=== PATIENT | male | born 1975 | race Caucasian/White ===

== ENCOUNTER 2023-05-19 15:39 | Outpatient (REF) | payer BC, SELFPAY ==
--- OUTSIDE RECORDS SUMMARY | 2023-05-19 15:44 | XMS_ITS | Continuity of Care Document ---
Author Name Unknown Organization [facility] Ambulatory Clinics Address [address] [place] [address] Encounter [facility] FIN NBR [id number] Date(s): 04/19/23 - 04/19/23 [facility] Ambulatory Clinics [address] [place], [place] [address] Encounter Diagnosis Maxillary sinusitis(Discharge Diagnosis) - 04/19/23 Discharge Disposition: Home or Self Care Attending Physician: Wilson WHEELER, Alma Rosa Allergies, Adverse Reactions, Alerts Substance Reaction Severity Status codeine Delusion Moderate Active Percocet Vomit Moderate Active Functional Status 04/19/23 Other exposure to Infectious Disease Non e Medications !-Augmentin 875 mg-125 mg oral tablet 1 tab, Oral, every 12 hr, with food or milk, # 14 tab, 0 Refill(s), Pharmacy: [id number] Start Date: 04/19/23 Stop Date: 04/26/23 Status: Ordered Vital Signs Most recent to oldest [Reference Range]: 1 Temperature Tympanic [36.6-37.9 Deg C] 3 7.7 Deg C (04/19/23 8:55 AM) Peripheral Pulse Rate [60-100 bpm] 118 b pm *HI* (04/19/23 8:55 AM) Respiratory Rate [12-24 br/min] 16 br/mi n (04/19/23 8:55 AM) Blood Pressure [90-140/60-90 mmHg] 149/1 00mmHg *HI* (04/19/23 8:55 AM) Hospital Discharge Instructions Patient Education 04/19/2023 08:21:17 Sinusitis, Adult Sinusitis, Adult Sinusitis is inflammation of your sinuses. Sinuses are hollow spaces in the bones around your face.Your sinuses are located: ??? Around your eyes. ??? In the middle of your forehead. ??? Behind your nose. ??? In your cheekbones. Mucus normally drains out of your sinuses. When your nasal tissues become inflamed or swollen, mucus can become trapped or blocked. This allows bacteria, viruses, and fungi to grow, which leads to infection. Most infections of the sinuses are caused by a virus. Sinusitis can develop quickly. It can last for up to 4 weeks (acute) or for more than 12 weeks (chronic). Sinusitis often develops after a cold. What are the causes? This condition is caused by anything that creates swelling in the sinuses or stops mucus from draining. This includes: ??? Allergies. ??? Asthma. ??? Infection from bacteria or viruses. ??? Deformities or blockages in your nose or sinuses. ??? Abnormal growths in the nose (nasal polyps). ??? Pollutants, such as chemicals or irritants in the air. ??? Infection from fungi (rare). What increases the risk? You are more likely to develop this condition if you: ??? Have a weak body defense system (immune system). ??? Do a lot of swimming or diving. ??? Overuse nasal sprays. ??? Smoke. What are the signs or symptoms? The main symptoms of this condition are pain and a feeling of pressure around the affected sinuses.Other symptoms include: ??? Stuffy nose or congestion. ??? Thick drainage from your nose. ??? Swelling and warmth over the affected sinuses. ??? Headache. ??? Upper toothache. ??? A cough that may get worse at night. ??? Extra mucus that collects in the throat or the back of the nose (postnasal drip). ??? Decreased sense of smell and taste. ??? Fatigue. ??? A fever. ??? Sore throat. ??? Bad breath. How is this diagnosed? This condition is diagnosed based on: ??? Your symptoms. ??? Your medical history. ??? A physical exam. ??? Tests to find out if your condition is acute or chronic. This may include: ??? Checking your nose for nasal polyps. ??? Viewing your sinuses using a device that has a light (endoscope). ??? Testing for allergies or bacteria. ??? Imaging tests, such as an MRI or CT scan. In rare cases, a bone biopsy may be done to rule out more serious types of fungal sinus disease. How is this treated? Treatment for sinusitis depends on the cause and whether your condition is chronic or acute. ??? If caused by a virus, your symptoms should go away on their own within 10 days. You may be given medicines to relieve symptoms. They include: ??? Medicines that shrink swollen nasal passages (topical intranasal decongestants). ??? Medicines that treat allergies (antihistamines). ??? A spray that eases inflammation of the nostrils (topical intranasal corticosteroids). ??? Rinses that help get rid of thick mucus in your nose (nasal saline washes). ??? If caused by bacteria, your health care provider may recommend waiting to see if your symptoms improve. Most bacterial infections will get better without antibiotic medicine. You may be given antibiotics if you have: ??? A severe infection. ??? A weak immune system. ??? If caused by narrow nasal passages or nasal polyps, you may need to have surgery. Follow these instructions at home: Medicines ??? Take, use, or apply gbmb-drx-duwjyyh and prescription medicines only as told by your health care provider. These may include nasal sprays. ??? If you were prescribed an antibiotic medicine, take it as told by your health care provider. Donot stop taking the antibiotic even if you start to feel better. Hydrate and humidify ??? Drink enough fluid to keep your urine pale yellow. Staying hydrated will help to thin your mucus. ??? Use a cool mist humidifier to keep the humidity level in your home above 50%. ??? Inhale steam for 10???15 minutes, 3???4 times a day, or as told by your health care provider. You can do this in the bathroom while a hot shower is running. ??? Limit your exposure to cool or dry air. Rest ??? Rest as much as possible. ??? Sleep with your head raised (elevated). ??? Make sure you get enough sleep each night. General instructions ??? Apply a warm, moist washcloth to your face 3???4 times a day or as told by your health care provider. This will help with discomfort. ??? Wash your hands often with soap and water to reduce your exposure to germs. If soap and water are not available, use hand senior packaging engineer. ??? Do not smoke. Avoid being around people who are smoking (secondhand smoke). ??? Keep all follow-up visits as told by your health care provider. This is important. Contact a health care provider if: ??? You have a fever. ??? Your symptoms get worse. ??? Your symptoms do not improve within 10 days. Get help right away if: ??? You have a severe headache. ??? You have persistent vomiting. ??? You have severe pain or swelling around your face or eyes. ??? You have vision problems. ??? You develop confusion. ??? Your neck is stiff. ??? You have trouble breathing. Summary ??? Sinusitis is soreness and inflammation of your sinuses. Sinuses are hollow spaces in the bones around your face. ??? This condition is caused by nasal tissues that become inflamed or swollen. The swelling traps or blocks the flow of mucus. This allows bacteria, viruses, and fungi to grow, which leads to infection. ??? If you were prescribed an antibiotic medicine, take it as told by your health care provider. Donot stop taking the antibiotic even if you start to feel better. ??? Keep all follow-up visits as told by your health care provider. This is important. This information is not intended to replace advice given to you by your health care provider. Make sure you discuss any questions you have with your health care provider. Document Revised: 04/01/2019 Document Reviewed: 04/01/2019 [employer] Patient Education ?? 2021 [employer]. Physician Outpatient Note * Alma Rosa Rachel PA-C: PERFORM Event Display: Office Clinic Note Physician Authored Date: [id number] SHANNON CHOWDHURY :1975 Age:48 years Sex:Male Visit Date:04/19/2023 Chief Complaint head congestion, fever and ear pressure started 4 days ago. History of Present Illness 48 y/o male presents to with c/o sinus pain, CHINCHILLA, and fevers since Monday. Pt states he was also sick about a month ago with a viral illness where he had cough and congestion. It got better but never fully resolved. States Monday he was out mowing the grass, when he was done he was freezing cold and had a fever. Reports he had severe nasal congestion and sinus pain. Also had a sore throat Sa but that has since subsided. Fever persisted until Monday, then subsided. Monday into Monday fever came back. He has been taking thera-flu and OTC tylenol. States it is not really helping. States he has an occasional cough??and a little congestion in??his chest but??feels his sinuses??are the main problem.??Has had a viral sinus infection in the distant past. Does have seasonal allergies.Does not take any other home medications. Has not seen a PCP in years. Does have an appointment with [facility] in [place] to establish care. Review of Systems Constitutional:?Positive for??fevers,?Positive for??chills,?No??sweats Eye:?No??recent visual problems ENT:?Positive for??ear pressure,?Positive for??nasal congestion,?Positive for??sore throaton Monday Respiratory:?No??shortness of breath,?Positive for??cough Cardiovascular:?No??Chest pain,?No??palpitations,?No??syncope Gastrointestinal:?Nonausea,?No??vomiting,?No??diarrhea Genitourinary:?No??hematuria Musculoskeletal:??No??back pain,??No??neck pain,??No??joint pain,??No??muscle pain,??No??decreased range of motion Integumentary:?No??rash,?No??pruritus,?No??abrasions Neurologic: Alert & oriented X 3 Psychiatric:?No??anxiety,?No??depression Physical Exam Vitals & Measurements T:??37.7?C ??(Tympanic)?? HR:??118??(Peripheral)?? RR:??16?? BP:??149/100?? SpO2:??98%?? Pain Score:??6?? General: Alert and oriented, well nourished,?No??acute distress Eye: PERRL, EOMI,?Normal?conjunctiva HENT: Normocephalic, clear tympanic membranes,?Normal? hearing, moist oral mucosa,?No??scleral icterus,??No??bulging, erythema, or exudate of posterior pharynx?Positive for??sinus tenderness to frontal and maxillary sinus. Neck: Supple, non-tender,?No??lymphadenopathy Lungs:??Clear to auscultation, expiratory wheeze noted to RLL?? Respiration:??Non-Labored Heart:?Abnormal?? tachy,?Regular??rhythm,?No??murmur,?No??gallop,?No??edema Musculoskeletal:?Normal? range of motion and strength,?No??tenderness,?No??swelling Skin: Skin is warm, dry and pink,?No??rashes,?No??lesions Neurologic: Awake, alert and oriented X3 Psychiatric: Cooperative, appropriate mood and affect Medical Decision Makin48 y/o male presents with c/o sinus pain and fevers that started 4 days ago after having viral URI about 4 weeks ago that seemed to get better but now has returned. Tachy with low grade temp. O2 sat 98% RA. ??DDx includes bacterial sinusitis, viral sinusitis,??common cold, allergies, pneumonia. Dueto pattern of viral illness that subsided and is now back with pain over both frontal and maxillarysinuses and low grade temp with slight wheeze to RLL??will treat for bacterial sinusitis with abx. Discharge instructions given and return precautions reviewed. Assessment/Plan 1.??Maxillary sinusitis??J32.0 Patient Instructions Start the Augmentin twice a day for the next 7 days. ??Please take it with food to prevent any nausea vomiting or diarrhea.?? If you do not tolerate this medication, contact me and I will change the antibiotic. You may use nasal spray??such as Flonase or Nasonex??and 10 mg of Claritin or Zyrtec, preferably atbedtime. Monitor for any return of fever, productive cough, chest pain or shortness of breath. Patient Education Sinusitis, Adult Problem List/Past Medical History Ongoing No qualifying data Historical No qualifying data Medications !-Augmentin 875 mg-125 mg oral tablet, 1 tab, Oral, every 12 hr Allergies Percocet??(Vomit) codeine??(Delusion) Electronically Signed on 04/19/23 07:05 PM Alma Rosa Rachel PA-C Electronically Signed on 04/19/23 09:48 AM Connie Chan Outpatient Summary note * Alma Rosa Rachel PA-C: PERFORM Event Display: Ambulatory Patient Summary Authored Date: [id number] SHANNON CHOWDHURY :1975 Age:48 years Sex:Male Visit Date:04/19/2023 Ambulatory Visit Instructions We would like to thank you for allowing us to assist you with your healthcare needs. The following includes patient education materials and information regarding your injury/illness. Your Next Steps Instructions From Your Care Team Start the Augmentin twice a day for the next 7 days. ??Please take it with food to prevent any nausea vomiting or diarrhea.?? If you do not tolerate this medication, contact me and I will change the antibiotic. You may use nasal spray??such as Flonase or Nasonex??and 10 mg of Claritin or Zyrtec, preferably atbedtime. Monitor for any return of fever, productive cough, chest pain or shortness of breath. Medications What How Much When Why Instructions New amoxicillin-clavulanate (!-Augmentin 875 mg-125 mg oral tablet) 1 tab Oral (given by mouth) Every 12 hours Maxillary sinusitis Duration: 7 Days with food or milk ?? Pickup at [id number] Pharmacy Information [id number]: [address], [place] [id number] [phone] Your Summary Your Diagnosis Maxillary sinusitis Your Care Team Attending Physician - Wilson WHEELER, Alma Rosa Discharge Vitals Temperature??(Tympanic) 99.9 ??F (37.7 ??C) Heart Rate??(Peripheral) 118 Respiratory Rate?? 16 Blood Pressure?? 149/100?? Allergies Percocet??(Vomit) codeine??(Delusion) Education Materials Sinusitis, Adult Sinusitis is inflammation of your sinuses. Sinuses are hollow spaces in the bones around your face.Your sinuses are located: ? Around your eyes. ? In the middle of your forehead. ? Behind your nose. ? In your cheekbones. Mucus normally drains out of your sinuses. When your nasal tissues become inflamed or swollen, mucus can become trapped or blocked. This allows bacteria, viruses, and fungi to grow, which leads to infection. Most infections of the sinuses are caused by a virus. Sinusitis can develop quickly. It can last for up to 4 weeks (acute) or for more than 12 weeks (chronic). Sinusitis often develops after a cold. What are the causes? This condition is caused by anything that creates swelling in the sinuses or stops mucus from draining. This includes: ? Allergies. ? Asthma. ? Infection from bacteria or viruses. ? Deformities or blockages in your nose or sinuses. ? Abnormal growths in the nose (nasal polyps). ? Pollutants, such as chemicals or irritants in the air. ? Infection from fungi (rare). What increases the risk? You are more likely to develop this condition if you: ? Have a weak body defense system (immune system). ? Do a lot of swimming or diving. ? Overuse nasal sprays. ? Smoke. What are the signs or symptoms? The main symptoms of this condition are pain and a feeling of pressure around the affected sinuses.Other symptoms include: ? Stuffy nose or congestion. ? Thick drainage from your nose. ? Swelling and warmth over the affected sinuses. ? Headache. ? Upper toothache. ? A cough that may get worse at night. ? Extra mucus that collects in the throat or the back of the nose (postnasal drip). ? Decreased sense of smell and taste. ? Fatigue. ? A fever. ? Sore throat. ? Bad breath. How is this diagnosed? This condition is diagnosed based on: ? Your symptoms. ? Your medical history. ? A physical exam. ? Tests to find out if your condition is acute or chronic. This may include: ? Checking your nose for nasal polyps. ? Viewing your sinuses using a device that has a light (endoscope). ? Testing for allergies or bacteria. ? Imaging tests, such as an MRI or CT scan. In rare cases, a bone biopsy may be done to rule out more serious types of fungal sinus disease. How is this treated? Treatment for sinusitis depends on the cause and whether your condition is chronic or acute. ? If caused by a virus, your symptoms should go away on their own within 10 days. You may be given medicines to relieve symptoms. They include: ? Medicines that shrink swollen nasal passages (topical intranasal decongestants). ? Medicines that treat allergies (antihistamines). ? A spray that eases inflammation of the nostrils (topical intranasal corticosteroids). ? Rinses that help get rid of thick mucus in your nose (nasal saline washes). ? If caused by bacteria, your health care provider may recommend waiting to see if your symptoms improve. Most bacterial infections will get better without antibiotic medicine. You may be given antibiotics if you have: ? A severe infection. ? A weak immune system. ? If caused by narrow nasal passages or nasal polyps, you may need to have surgery. Follow these instructions at home: Medicines ? Take, use, or apply ytis-ynk-xqylcop and prescription medicines only as told by your health care provider. These may include nasal sprays. ? If you were prescribed an antibiotic medicine, take it as told by your health care provider. Do notstop taking the antibiotic even if you start to feel better. Hydrate and humidify ? Drink enough fluid to keep your urine pale yellow. Staying hydrated will help to thin your mucus. ? Use a cool mist humidifier to keep the humidity level in your home above 50%. ? Inhale steam for 10???15 minutes, 3???4 times a day, or as told by your health care provider. You can do this in the bathroom while a hot shower is running. ? Limit your exposure to cool or dry air. Rest ? Rest as much as possible. ? Sleep with your head raised (elevated). ? Make sure you get enough sleep each night. General instructions ? Apply a warm, moist washcloth to your face 3???4 times a day or as told by your health care provider. This will help with discomfort. ? Wash your hands often with soap and water to reduce your exposure to germs. If soap and water are not available, use hand senior packaging engineer. ? Do not smoke. Avoid being around people who are smoking (secondhand smoke). ? Keep all follow-up visits as told by your health care provider. This is important. Contact a health care provider if: ? You have a fever. ? Your symptoms get worse. ? Your symptoms do not improve within 10 days. Get help right away if: ? You have a severe headache. ? You have persistent vomiting. ? You have severe pain or swelling around your face or eyes. ? You have vision problems. ? You develop confusion. ? Your neck is stiff. ? You have trouble breathing. Summary ? Sinusitis is soreness and inflammation of your sinuses. Sinuses are hollow spaces in the bones around your face. ? This condition is caused by nasal tissues that become inflamed or swollen. The swelling traps or blocks the flow of mucus. This allows bacteria, viruses, and fungi to grow, which leads to infection. ? If you were prescribed an antibiotic medicine, take it as told by your health care provider. Do notstop taking the antibiotic even if you start to feel better. ? Keep all follow-up visits as told by your health care provider. This is important. This information is not intended to replace advice given to you by your health care provider. Make sure you discuss any questions you have with your health care provider. Document Revised: 04/01/2019 Document Reviewed: 04/01/2019 [employer] Patient Education ?? 2021 [employer] Electronically Signed on: 04/19/2023 09:24 EDTSigned by:MIRIAM
[2023-05-19 21:10] LABS: HCT 44.6 % (40.0-50.0); HGB 15.3 g/dL (13.5-17.5); MCH 29.6 pg (27.0-33.0); MCHC 34.3 % (32.0-36.0); MCV 86 fL (80-95); MPV 10.5 fL (8.0-11.0); Platelet Count 249 10^3/uL (130-400); RBC 5.17 10^6/uL (4.36-5.78); RDW 12.9 % (11.8-14.1)
[2023-05-19 22:20] LABS: ALT 49 U/L (16-63); AST 29 U/L (15-37); Albumin 3.9 g/dL (3.4-5.0); Alkaline Phosphatase 109 U/L (46-116); Anion Gap 9.6 mmol/L (3-11); BUN 15 mg/dL (7-18); Bilirubin, Total 0.4 mg/dL (0.2-1.0); CO2 27.4 mmol/L (21.0-32.0); CREATININE 0.9 mg/dL (0.70-1.30); Calcium 9.3 mg/dL (8.5-10.1); Calculated LDL 117 mg/dL (<100); Chloride 104 mmol/L (98-107); Cholesterol 206 mg/dL (<200); Estimated GFR 106.67 (mL/min/1.73m2); Glucose 73 mg/dL (74-106); HDL Cholesterol 44 mg/dL (40-60); Magnesium 2.1 mg/dL (1.8-2.4); Potassium 4.1 mmol/L (3.5-5.1); Sodium 141 mmol/L (136-145); TSH (W/Ref FT4) 1.68 uIU/mL (0.36-3.74); Total Protein 7.7 g/dL (6.4-8.2); Triglyceride 225 mg/dL (<150)
[2023-05-19 22:36] LABS: C-Reactive Protein 1.37 mg/dL (0.0-0.3)
== END 2023-05-19 15:40 | disposition home or self-care (01) ==
LOC: NCHCN 15:39
PROVIDERS: Visit Provider Family Medicine
DX: Z00.00 Encounter for general adult medical examination without abnormal findings (principal); Z13.220 Encounter for screening for lipoid disorders; Z13.29 Encounter for screening for other suspected endocrine disorder; Z13.228 Encounter for screening for other metabolic disorders
CPT/HCPCS: 80053; 80061; 85027; 83735; 84443; 86140

== ENCOUNTER 2023-05-26 00:29 | Outpatient (CLI) | payer BC, SELFPAY ==
--- NOTE | 2023-05-26 16:13 | DI.RAD_ITS ---
Exam(s) XR SACROILIAC JOINTS EXAM: XR SACROILIAC JOINTS CLINICAL HISTORY: RT SI JOINT PAIN, M53.3. TECHNIQUE: 2D digital imaging was performed. COMPARISON: No exams were available for comparison FINDINGS: 3 views There is no radiographic evidence of sacroiliitis. Also no ankylosis of the SI joints. Bone density normal. No osseous lesions nor erosions evident. No fractures. Hip joint spaces appear normal. IMPRESSION: Normal appearing SI joints. DATA REPOSITORY: RADIATION DOSE DELIVERED:
== END 2023-05-26 00:49 ==
PROVIDERS: Visit Provider Family Medicine
DX: M53.3 Sacrococcygeal disorders, not elsewhere classified (principal)
CPT/HCPCS: 72202

== ENCOUNTER 2023-06-26 08:51 | Emergency (ER) | payer BC, SELFPAY ==
[2023-06-26] VITALS (7 sets, daily range): BP systolic 134–159; BP diastolic 87–114; PULSE 82–98; RESP 14–24; TEMP 36.9; O2SAT 96–98
--- NOTE | 2023-06-26 09:15 | DI.CT_ITS ---
Exam(s) CT ABDOMEN PELVIS W EXAM: CT ABDOMEN PELVIS W CLINICAL HISTORY: RLQ pain over McBurney's point, BRBPR. TECHNIQUE: Imaging Protocol: Axial computed tomography images with coronal and sagittal reformatted images were created and reviewed CONTRAST MATERIAL: Intravenous: Omnipaque-350 100cc Oral: None COMPARISON: No exams were available for comparison FINDINGS: VISUALIZED LUNG BASES: No nodules nor pleural effusions evident. ABDOMEN: There is no ascites. LIVER: Hepatic steatosis noted but no discrete focal hepatic lesions. No dilated intrahepatic ducts. GALLBLADDER/BILIARY: Small gallstones noted. There is also a focal mural density in the anterior gal lbladder wall measuring 6 x 4 mm, best seen on the sagittal images and suspicious for polyp. CBD is not dilated. PANCREAS: No evidence of pancreatic mass nor dilatation of the pancreatic duct. SPLEEN: Spleen is not enlarged. No obvious intrasplenic lesions. Splenic and portal veins are paten t. ADRENALS: There are no significant adrenal masses. KIDNEYS:No cysts evident. No solid renal masses. No calculi nor hydronephrosis.. ABDOMINAL AORTA: Abdominal aorta is not enlarged. LYMPH NODES:There is no retroperitoneal nor paraaortic adenopathy. ABDOMINAL WALL: No evidence of significant anterior abdominal wall nor inguinal hernia. GI: There is no evidence of bowel obstruction, free air, nor abscess. PELVIS: GI: No evidence of appendicitis.There are few diverticuli in the sigmoid noted but no obvious acute d iverticulitis. Some narrowing of the lumen of the descending-left colon is noted, this just above th e iliac crest level but difficult to assess with out enteric contrast. LYMPH NODES: There is no intrapelvic nor inguinal adenopathy. REPRODUCTIVE: Prostate size normal. Seminal vesicles unremarkable. URINARY BLADDER: No calculi nor obvious masses evident OSSEOUS: No fractures and no significant osseous lesions. IMPRESSION: 1. No evidence of acute appendicitis, as per request. 2. There are few sigmoid diverticuli but no evidence of acute diverticulitis. 3. Mild constipation evident. 4. There is a sessile 6 x 4 mm soft tissue density on the anterior wall of the gallbladder concerning for polyp at this level. There are possible tiny gallstones evident on 1 image. Recommend follow-u p ultrasound. Report called by myself to ER provider RADIATION DOSE DELIVERED: 1,446.53mGy.cm Total DLP DATA REPOSITORY: All CT scans at this facility are submitted to the National Radiology Data Registry (NRDR) Dose Index Registry (DIR) with the [employer] ([employer]). RADIATION OPTIMIZATION: All CT scans at this facility use at least one of these dose optimization te chniques: automated exposure control; mA and/or kV adjustment per patient size (includes targeted exa ms where dose is matched to clinical indication); or iterative reconstruction.
--- NOTE | 2023-06-26 09:16 | W.ED.GENAD ---
Discharge Plan Disposition Patient Disposition: Home Condition: Good Discharge Details Clinical Impression: BRBPR (bright red blood per rectum), Sigmoid diverticulum, Constipation, Gallstone Primary Care Provider: Octavia Coto ED Provider: Jonelle Denis Home Meds and New Rx's Prescriptions: Continued bupropion HCl [Wellbutrin SR] 150 mg tablet sustained-release 12 hr 150 mg PO BID acetaminophen 500 mg tablet 500 mg PO Q6H PRN polyethylene glycol 3350 17 gram/dose powder 238 g PO ONCE Qty: 238 0RF Rx Instructions: take per colonoscopy instructions bisacodyl [Dulcolax (bisacodyl)] 5 mg tablet,delayed release (DR/EC) 5 mg PO ONCE Qty: 4 0RF Rx Instructions: take per colonoscopy instructions Discharge Instructions Instructions: Constipation (ED), Rectal Bleeding (ED) Additional Instructions: As we discussed, your labs are reassuring here today and there is no evidence that you are becoming anemic from the bright red blood per rectum. This may be associated with the sigmoid diverticuli as we discussed that was noted on your imaging. Please keep your upcoming appoint with general surgery. Please encourage water intake. Please encourage increase fiber intake, you may supplement with something like Benefiber. Please follow the instructions leading up to your colonoscopy regarding diet and prep. Please discuss the gallstone noted on imaging with your general surgery team. If you develop increased pain, fever/chills, inability stay hydrated or other new/worsening symptom please seek care urgently once again. Referrals: Octavia Coto [Primary Care Provider] - Medical Decision Making Patient is a pleasant 48-year-old male with past medical history significant for hematochezia, fatigue, tobacco abuse, alcohol use, presenting today with chief complaint of bright red blood per rectum. He reports this began 1 week ago. He states that he has this once per day when he first wakes in the morning with his typical bowel regimen. He reports that for the past week its been filling the bowl. He states that he has been more fatigued and more recently began having some abdominal discomfort primarily over the right lower quadrant. He endorses some nausea but denies any vomiting. Denies any analgesics or antiemetics at this time. No fevers or chills. Denies chest pain or shortness of breath. No pain radiating into his back. Patient has had issues with hematochezia historically and is scheduled to have a colonoscopy in 2 weeks and had discussed banding's of hemorrhoids in the past. He reports that he drinks proximately 6 beers per day and smokes 2 packs/day. On exam, patient appears nontoxic. He is resting comfortably no acute distress with stable vital signs. His lungs are clear, normal cardiac exam. He does appear slightly dehydrated. No petechial rash noted intraorally but he does have some conjunctival pallor. His abdomen exam is significant for point tenderness over McBurney's point. No CVA tenderness. Rectal exam normal externally, some swelling on internal exam. No cj blood but positive for occult blood. No fissures or active bleeding. Labs reviewed, no leukocytosis, stable H&H, no significant abnormality on CMP, lipase WNL, normal urine. Spoke with radiologist who advised that patient's appendix is normal. Does advise the patient has some constipation particularly in the cecum. Notes a gallbladder polyp as well as a small stone but no evidence of acute cholecystitis and that he should follow-up as an outpatient. Does note some sigmoid diverticuli. Discussed with patient. Advised that his bright red blood per rectum could also be associated with the sigmoid diverticuli. He already has a scheduled outpatient colonoscopy. He and I discussed supportive measurements including increased fiber intake as well as increased water intake. We discussed things that he should avoid and I encouraged that he try to cut back on caffeine, alcohol and smoking. He will keep his upcoming appointment with general surgery. Return precautions were discussed. All his questions and concerns were addressed and he is in agreement this plan. [facility] General Date/Time Provider Initiated Documentation: 06/26/23 09:00. Limitations to Documentation: no limitations. Information obtained by: patient, RN notes reviewed and old records reviewed. History of Present Illness 48 year old M presents to the emergency department with the chief complaint of BRBPR, abdominal pain, described as moderate, with intensity rated at 5. and is localized to the abdomen. Patient reports no radiation. Patient started experiencing this week(s) (1) and it has been constant. No relieving factors improve symptom(s), No exacerbating factors reported . Patient notes loss of appetite, malaise and nausea/vomiting (nausea, no vomiting); denies chest pain, cough, fever/chills and shortness of breath. Patient did receive the following treatments prior to arrival, none Related Data Home Medications Medication Instructions Recorded Confirmed bupropion HCl 150 mg tablet,12 hr 150 mg PO BID 06/12/23 06/26/23 sustained-release (Wellbutrin SR) acetaminophen 500 mg tablet 500 mg PO Q6H PRN 06/15/23 06/26/23 bisacodyl 5 mg tablet,delayed 5 mg PO ONCE colonscopy bowel prep 06/15/23 06/26/23 release (Dulcolax (bisacodyl)) #4 tabs polyethylene glycol 3350 17 238 g PO ONCE colonoscopy prep 06/15/23 06/26/23 gram/dose oral powder #238 grams Previous Rx's Medication Instructions Recorded bisacodyl 5 mg tablet,delayed 5 mg PO ONCE colonscopy bowel prep 06/15/23 release (Dulcolax (bisacodyl)) #4 tabs polyethylene glycol 3350 17 238 g PO ONCE colonoscopy prep 06/15/23 gram/dose oral powder #238 grams Allergies Allergy/AdvReac Type Severity Reaction Status Date / Time acetaminophen [From Percocet] AdvReac Intermediate Unverified 06/26/23 09:01 oxycodone HCl [From Percocet] AdvReac Intermediate Unverified 06/26/23 09:01 codeine AdvReac Unverified 06/26/23 09:01 General Stated Complaint: GI Bleed BETHANY: 3 Review of Systems Constitutional Constitutional: Reports as per HPI, Denies chills, Denies fever(s) and Denies headache(s) ENT Ears, Nose, Mouth, and Throat: Denies headache(s) Cardiovascular Cardiovascular: Reports as per HPI, Denies chest pain and Denies dyspnea Respiratory Respiratory: Reports as per HPI, Denies cough and Denies dyspnea Gastrointestinal Gastrointestinal: Reports as per HPI Genitourinary Genitourinary: Denies system reviewed and no additional complaints, except as documented (patient denies any change in urinary habits) Musculoskeletal Musculoskeletal: Reports as per HPI and Denies back pain Integumentary/Breasts Skin/Breast: Reports as per HPI and Denies rash Neurologic Neurologic: Reports as per HPI and Denies headache(s) PFSH All Active Problems (Updated 06/26/23 @ 11:13 by MARY Calle) Sigmoid diverticulum (Acute) Constipation (Acute) Gallstone (Acute) Alcohol use (Acute) Fatigue (Acute) Tobacco abuse (Acute) BRBPR (bright red blood per rectum) (Acute) Hematochezia (Acute) Medical History Chronic SI joint pain Elevated blood pressure reading Hematuria Hemorrhoids Left hand pain Post-operative nausea and vomiting Right hand pain Social History Smoking/Tobacco Use Status: Current every day Tobacco Type: cigarettes Smoking risk assessment performed?: Yes Alcohol Intake: current Alcohol Intake frequency: 3 or more drinks per day Alcohol type: beer Drug use: Never Substance use type: does not use Housing: house Do you feel safe at home: Yes Do you feel safe in your relationship?: Yes Exam Const General: cooperative, healthy appearing, comfortable, no acute distress and well developed Nutritional Appearance: well nourished and overweight Orientation: alert and awake HENMT Head: normal to inspection Mouth: moist mucous membranes Resp Effort & Inspection: normal respiratory effort, able to speak in complete sentences and no respiratory distress Auscultation: clear to auscultation bilaterally, no rales, no rhonchi and no wheezes Cardio Rate: regular rate Rhythm: regular rhythm Heart Sounds: S1 normal and S2 normal GI Inspection: normal to inspection Palpation: soft, no hepatosplenomegaly, not firm, no guarding, no hernias, no masses, no pulsatile masses, not rigid, tender in the RLQ and at McBurney's point; Talavera's sign negative and with no rebound tenderness and No ascites Percussion: normal to percussion Auscultation: normal bowel sounds Back/Spine/Pelvis Back: no CVA tenderness Skin General skin exam: no rashes or lesions noted Trauma: no lacerations or abrasions Neuro General: patient alert and patient awake Cognition: normal cognition Speech: speech normal Gait: normal gait Course Vital Signs Vital signs: Vital Signs Temperature 36.9 C 06/26/23 08:55 Pulse 98 H 06/26/23 08:55 Respiratory Rate 24 06/26/23 08:55 Blood Pressure 147/96 H 06/26/23 08:55 Pulse Oximetry 98 06/26/23 08:55 Temperature 36.9 C 06/26/23 08:55 Temperature Source Oral 06/26/23 08:55 Pulse 98 H 06/26/23 08:55 Respiratory Rate 24 06/26/23 08:55 Respiratory Effort Normal 06/26/23 08:59 Blood Pressure 147/96 H 06/26/23 08:55 Blood Pressure Position Sitting 06/26/23 08:55 Pulse Oximetry 98 06/26/23 08:55 Oxygen Delivery Method Room Air 06/26/23 08:55 Oxygen Flow Rate 0 06/26/23 08:55 Pain Level 5 06/26/23 08:55 PAWSS Have you Been Recently Intoxicated or Drunk Within the Last 30 days?: No Have you Ever Experienced Previous Episodes of Alcohol Withdrawal?: No Have you ever Experienced Withdrawal Seizures?: No Have you ever Experienced Delirium Tremens(DT)s?: No Have you ever undergone Alcohol Rehabilitation Treatment (i.e, inpt ot outpatient treatment programs)?: No Have you ever Experienced Blackouts?: No Have you ever Combined Alcohol with other Downers within the last 90 days?: No Have you ever Combined Alcohol with any other Substance of Abuse during the last 90 days?: No Result: 0
[2023-06-26] MEDS: Normal Saline 1,000 ML 1000 ML IV (09:30)
[2023-06-26 09:42] LABS: Abs Immature Grans 0.05 10^3/uL (0.0-0.06); Absolute Basophil Count 0.05 10^3/uL (0.0-0.2); Absolute Eosinophil Count 0.11 10^3/uL (0.0-0.7); Absolute Lymphocyte Count 2.14 10^3/uL (1.2-3.4); Absolute Monocyte Count 0.66 10^3/uL (0.1-0.8); Absolute Neutrophil Count 5.87 10^3/uL (1.2-6.7); Basophils % 0.6; Eosinophils % 1.2; HCT 44.7 % (40.0-50.0); HGB 15.5 g/dL (13.5-17.5); Immature Grans % 0.6; Lymphocytes % 24.1; MCH 29.8 pg (27.0-33.0); MCHC 34.7 % (32.0-36.0); MCV 86 fL (80-95); MPV 9.9 fL (8.0-11.0); Monocytes % 7.4; Neutrophils % 66.1; Platelet Count 226 10^3/uL (130-400); RBC 5.21 10^6/uL (4.36-5.78); RDW 12.6 % (11.8-14.1); RDW-SD 39.4 fL; WBC 8.88 10^3/uL (4.4-10.8)
[2023-06-26 09:51] LABS: ALT 44 U/L (16-63); AST 19 U/L (15-37); Albumin 3.6 g/dL (3.4-5.0); Alkaline Phosphatase 110 U/L (46-116); Anion Gap 10.1 mmol/L (3-11); BUN 12 mg/dL (7-18); Bilirubin, Total 0.4 mg/dL (0.2-1.0); CO2 23.9 mmol/L (21.0-32.0); Calcium 9.2 mg/dL (8.5-10.1); Chloride 104 mmol/L (98-107); Glucose 116 mg/dL (74-106); Lipase 43 U/L (16-77); Magnesium 1.8 mg/dL (1.8-2.4); Potassium 4.1 mmol/L (3.5-5.1); Sodium 138 mmol/L (136-145); Total Protein 7.8 g/dL (6.4-8.2)
[2023-06-26] MEDS: Omnipaque 350 MG/ML 100 ML BTL IJ (10:19)
[2023-06-26] MEDS: Normal Saline - Diluent 50 ML VIAL IJ (10:21)
[2023-06-26 10:23] LABS: Bilirubin Negative (Negative); Blood Negative (Negative); Clarity Clear (Clear); Glucose Negative (Negative); Ketones Negative (Negative); Leukocyte Esterase Negative (Negative); Nitrite Negative (Negative); Urobilinogen 0.2 mg/dL (Up to 0.2)
== END 2023-06-26 11:36 | disposition home or self-care (01) ==
PROVIDERS: Emergency Provider Physician Assistant; PCP Family Medicine
DX: K62.5 Hemorrhage of anus and rectum (principal); K59.00 Constipation, unspecified; K57.30 Diverticulosis of large intestine without perforation or abscess without bleeding; K80.20 Calculus of gallbladder without cholecystitis without obstruction
CPT/HCPCS: 80053; 83690; 96360; 99284; 74177; 81003; 83735; 85025; J3490

== ENCOUNTER 2023-07-11 07:01 | Day surgery (SDC) | payer BC, SELFPAY ==
--- NOTE | 2023-07-10 13:06 | PDOC.DSDIS_ITS ---
Date of service: 07/11/23 Time of Service: 09:14 Discharge Plan Disposition Patient Disposition: Home Condition: Good Discharge Details Reason For Visit: colon scope Attending Provider: Chrystal Lobo Primary Care Provider: Octavia Coto Home Meds and New Rx's Prescriptions: Continued bupropion HCl [Wellbutrin SR] 150 mg tablet sustained-release 12 hr 150 mg PO BID acetaminophen 500 mg tablet 500 mg PO Q6H PRN Discontinued polyethylene glycol 3350 17 gram/dose powder 238 g PO ONCE Qty: 238 0RF Rx Instructions: take per colonoscopy instructions bisacodyl [Dulcolax (bisacodyl)] 5 mg tablet,delayed release (DR/EC) 5 mg PO ONCE Qty: 4 0RF Rx Instructions: take per colonoscopy instructions Discharge Instructions Additional Instructions: DSU Colonoscopy Post- Op Instructions Instructions for Everyone who is given Anesthesia: For your safety, please do the following for the next twenty-four (24) hours: *Do Not operate a motor vehicle (car, truck, motorcycle, etc.) *Do Not drink alcoholic beverages or use any recreational drugs for the first 24 hours or while taking pain medications. The medications in your body may have a reaction that can be dangerous. *Do Not make any important decisions or sign any important papers. Findings: Diverticula Internal hemorrhoids Follow up: 07/24 at 11:30 Start metamucil daily as of 07/14/23 1. No lifting over 20 pounds or strenuous activity for the first 24 hours after your procedure. After 24 hours there are no restrictions on your activity but you may feel fatigued for a few days. 2. After you arrive home you may have a light meal and return to your normal diet as you can tolerate it without feeling sick to your stomach. 3. You may have a bloated, gaseous feeling in your belly (abdomen) after a colonoscopy. Passing gas and belching will help. Walking or lying down on your left side with your knees flexed may relieve the discomfort. Call the office at [phone] (Office) or [phone] (Hospital) right away if you notice any of the following: a.Vomiting of blood or ?coffee ground stools?. b.Rectal bleeding 1Tbsp, blood clots or continuous bleeding. c.Severe belly (abdominal) pain. d.A hard distended belly (abdomen) and an inability to pass gas. 4. Please don?t expect to have a normal BM (bowel movement) for 2-3 days after your procedure. 5. If there are questions regarding the findings of your procedure, please contact your doctor 6. If you are unable to contact your doctor with a problem, contact the hospital at [phone]. 7. Continue all your regular medications unless directed otherwise. I understand the above instructions and have no questions. Signature of Patient or Adult Escort Name of Responsible Adult Escort Signature of Nurse Date/Time Rubber Band Ligation for Hemorrhoids: What to Expect at Home Your Recovery In this procedure, a hemorrhoid was tied off at its base with rubber bands. You may feel pain and have a feeling of fullness in your lower belly. Or you may feel as if you need to have a bowel movement. This usually goes away within several days after the surgery. You may need pain medicine during this time. You may have a small amount of bleeding from your anus about 7 to 10 days after surgery, when your hemorrhoid falls off. This is normal. Some people are able to return to regular activities in 24 hours. Others may need 2 to 3 days of rest. You will need to avoid heavy lifting and straining with bowel movements for the next 5-7 days. This care sheet gives you a general idea about how long it will take for you to recover. But each person recovers at a different pace. Follow the steps below to get better as quickly as possible. How can you care for yourself at home? Activity ? Rest when you feel tired. Getting enough sleep will help you recover. ? Try to walk each day. Start by walking a little more than you did the day before. Bit by bit, increase the amount you walk. Walking boosts blood flow and helps prevent pneumonia and constipation. ? Avoid strenuous activities, such as bicycle or horse back riding, jogging, weight lifting, or aerobic exercise, for 1 week ? For 1 week avoid lifting anything that would make you strain (generally over 30#?s). This may include heavy grocery bags and milk containers, a heavy briefcase or backpack, cat litter or dog food bags, a vacuum rack cleaner, or a child. ? You may take showers and baths as usual. Pat your anal area dry when you are done. ? Ask your doctor when you can drive again. ? You may need to take a day off work. It depends on the procedure you had, the type of work you do, and how you feel. Diet ? You can eat your normal diet. If your stomach is upset, try eating bland, low-fat foods like plain rice, broiled chicken, toast, and yogurt. ? Drink plenty of fluids (unless your doctor has told you not to). ? It is important to eat high-fiber foods after your procedure. This will make it easier to have bowel movements and keep your hemorrhoids from coming back. ? You may notice that your bowel movements are not regular right after your procedure. This is common. Try to avoid constipation and straining with bowel movements. You may want to take a fiber supplement every day. If you have not had a bowel movement after a couple of days, ask your doctor about taking a mild laxative. Pain Control ? Your doctor will tell you if and when you can restart your medicines. He or she will also give you instructions about taking any new medicines. ? If you take aspirin or some other blood thinner, ask your doctor if and when to start taking it again. ? Take pain medicines ?as directed: Take tylenol 500 mg by mouth with food every 4 hours as needed for pain. Or ibuprofen 600 mg by mouth with food every 6 hours as needed for pain.? Do not take tylenol if you have a history of heavy drinking, hepatits C or liver problems.? Do not take ibuprofen if you have a history of stomach ulcers/problems, bleeding problem or kidney issues. If you think your pain medicine is making you sick to your stomach: o?? Take your medicine after meals (unless your doctor has told you not to). ? Sit in 5 to 10 inches plain of warm water (sitz bath) for 15 to 20 minutes 3 times a day and after bowel movements. Then pat the area dry. Do this as long as you have pain in your anal area. ? Put ice or a cold pack on the area for 10 to 20 minutes at a time. Try to do this every 1 to 2 hours for the next 3 days (when you are awake). Put a thin cloth between the ice and your skin. ? Support your feet with a small step stool when you sit on the toilet. This helps flex your hips and places your pelvis in a squatting position. This can make bowel movements easier after your procedure. ? Miralax as needed to avoid constipation or straining to move your bowels. When should you call for help? Call?911?anytime you think you may need emergency care. For example, call if: ? You passed out (lost consciousness). ? You are short of breath. Call your doctor or nurse advice line now?or seek immediate medical care if: ? You cannot pass stools or gas. ? You are sick to your stomach and cannot drink fluids. ? Bright red blood has soaked through the bandage. ? You have signs of a blood clot in your leg (called a deep vein thrombosis), such as: o?? Pain in the calf, back of your knee, thigh, or groin. o?? Redness and swelling in your leg or groin. ? You have signs of infection, such as: o?? Increased pain, swelling, warmth, or redness. o?? Red streaks leading from the area. o?? Pus draining from the area. o?? A fever. When consumed at recommended levels,?. Adult women 50 and younger should consume at least 25 grams of fiber a day. Women 51 and older should have at least 21 grams a day. Adult men need at least 38 grams of fiber a day if they are younger than 50 and at least 30 grams of fiber a day if they are 51 and older. Ninety percent of the [place] population consumes far below those recommendations, averaging only 15 grams of daily fiber. Fiber-rich foods include fruits, vegetables, whole grains and legumes. Many cereals, such as bran flakes, are good sources of fiber. Although fiber supplements can fill the daily fiber gap, they usually have only one type of fiber, rather than a variety of fibers and micronutrients, and they may not provide all the health benefits associated with fiber in food. Therefore, boost your fiber intake in your diet first by eating a wide variety of high-fiber foods. If you still can?t get enough fiber to meet the daily recommendation, consider using a supplement. Many fiber supplements can be used regularly observation nurse. Fiber is classified as soluble or insoluble. Soluble fibers are more fermentable and may cause gas. Insoluble fibers move through the digestive system largely intact, and that can increase stool bulk. Most fiber supplements are exclusively soluble or insoluble fiber. For example, FiberCon (calcium polycarbophil) and Benefiber (wheat dextrin) are mainly soluble fiber. They tend to cause more bloating and flatulence. Citrucel (methylcellulose) is mainly insoluble fibers that are nonfermentable, so it?s less likely to contribute to bloating and gas. Psyllium husk (Metamucil and Konsyl) is rich in both soluble and insoluble fiber. Generally, fiber supplements with mainly insoluble fiber may be a better option for constipation. Before taking a fiber supplement, ask your health care provider or pharmacist to review your medications. Fiber supplements can decrease the absorption of certain medications, including drugs that treat thyroid disorders,??and various heart ailments. Even common medications such as aspirin, ibuprofen and penicillin can be affected by an increase in fiber. You may take your medications one hour before or two hours after eating fiber to minimize the interaction. Some fiber supplements may not be appropriate for people with certain medical conditions. For example, if you have celiac disease, you may need to stay away from fiber products derived from wheat. If you have diabetes, you may need to use a flavorless formula to avoid extra sugar. Consult your health care provider for guidance about the appropriate fiber supplement. Go slow as you begin fiber therapy. Fiber supplements may cause abdominal bloating, cramping and flatulence, especially if you start at a high dose. Begin with a low dose, gradually increasing the amount of fiber. Don?t add more than 50 grams of fiber in a supplement per day, as that may affect how your body absorbs nutrients. Your health care provider can help determine what?s right for you. Drinking plenty of water and exercising regularly can help ease constipation, too. If increasing fiber doesn?t improve your symptoms, see your health care provider. Constipation can be a symptom of various underlying medical disorders, such as pelvic floor muscle dysfunction, slow gastrointestinal motility, anatomical abnormalities or endocrine dysfunction that may require different treatment.? Activity:: see above Diet:: see above Discharge Orders Discharge Orders: Discharge Order (Routine); Ordered 07/11/23 Ordered By: Chrystal Lobo DS: Diagnosis Discharge Diagnosis (1) Sigmoid diverticulum: Status: Acute (2) BRBPR (bright red blood per rectum): Status: Acute Asessment and Plan: Post [place] Note/Eval The patient is seen and examined after their colonoscopy.? The patient has been able to pass gas.? They are not having abdominal pain.? They have been able to tolerate liquids and a snack.? They do not have any nausea or vomiting.? They are not having any chest pain or shortness of breath.??? They are not having any rectal bleeding. Their vital signs have been stable-see nursing notes. We discussed findings during their colonoscopy, and any biopsies that were done/polyps that were removed. The patient will be sent a letter with any biopsy results, and when to repeat the colonoscopy.-see discharge instructions. Patient was given explicit instructions to follow-up regarding colonoscopy-refer to discharge instructions.? We reviewed resumption of medications. Patient verbalized understanding and discharged in stable and satisfactory condition- See nursing notes. (3) Constipation: Status: Acute (4) Alcohol use: Status: Acute (5) Fatigue: Status: Acute (6) Tobacco abuse: Status: Acute (7) Hematochezia: Status: Acute
--- NOTE | 2023-07-10 13:08 | W.COLOREPORT ---
Date of service: 07/11/23 Time of Service: 08:00 Colonoscopy Report Date of procedure: 07/11/23 Pre-op diagnosis general: diverticula/rectal bleeding Post-op diagnosis procedure note: other (Same handInternal hemorrhoids x2. ) Surgeon: Chrystal Lobo Anesthesia Type: General:No Airway Estimated blood loss (mL): 0 Pathology: none sent Complications: None Disposition: same day Prep: Miralax/Dulcolax Retraction Time: 10 Procedure Description: After informed consent was obtained the patient was taken to the procedure room and placed in a left decubitous position. Monitors were applied and a time out was done. The patients name, date of , procedure, allergies to medications and metal in their body was reviewed. The patient was then sedated. Once sedated and comfortable a rectal exam was done. External exam was normal. Internal exam revealed a normal sphincter tone and no palpable masses. The scope was then introduced and retrofelexed. Grade II internal hemorrhoids were identified x2 columns. The scope was then advanced to the cecum w/out difficulty. The TI and appendiceal orifice were identified. The prep was BBPS 2 in all segments for a total of 6. The scope was then slowly retracted over 10 minutes back into the rectum. He has very small and very few diverticula, confined to the sigmoid colon. There is no signs of active bleeding or infection. There are no polyps or AVMs. He has Internal hemorrhoids x2 columns of the left lateral and right anterior, Both of these are banded. No bleeding is noted. The scope was removed and the patient was woken up and taken back to Same day surgery in stable condition. The patient tolerated the procedure well and there were no immediate complications. Follow up: The patient should follow up in 10 years unless they develop changes in bowel habits or other new gastrointestinal complaints.
[2023-07-11 07:09] VITALS: BP 136/87; PULSE 94; RESP 17; TEMP 36.5; O2SAT 98
[2023-07-11] MEDS: Lactated Ringers 1,000 ML 80 ML IV (07:25)
--- NOTE | 2023-07-11 07:27 | ANES.PREOP_ITS ---
General Info Date of Service Date Performed: 07/11/23 Height: 6 ft 1 in Weight: 125.2 kg Body Mass Index (BMI): 36.3 Surgical Procedure: Operation Date: 07/11/23 08:25 Proposed Procedure Side Surgeon p Colonoscopy Chrystal Lobo DO s Possible Internal Hemorrhoid Banding Chrystal Lobo DO Meds Allergies and Home Medications Allergies Allergy/AdvReac Type Severity Reaction Status Date / Time acetaminophen [From Percocet] AdvReac Intermediate stomach Verified 07/11/23 07:17 pain, nausea codeine AdvReac Intermediate Per pt. Verified 07/11/23 07:17 states It's like im drunk, I dont want anything wit oxycodone HCl [From Percocet] AdvReac Intermediate stomach Verified 07/11/23 07:17 pain, nausea Home Medication Medication Instructions Recorded bupropion HCl 150 mg tablet,12 hr 150 mg PO BID 06/12/23 sustained-release (Wellbutrin SR) acetaminophen 500 mg tablet 500 mg PO Q6H PRN 06/15/23 Current Visit Medications: Current Medications Generic Name Dose Route Start Last Admin Trade Name Freq PRN Reason Stop Dose Admin Hyoscyamine Sulfate 0.125 mg 07/11/23 05:40 Hyoscyamine 0.125 Mg Sl/Oral/Chew SL 08/10/23 05:39 DIRECTED PRN Ringer's Solution 1,000 mls @ 80 mls/hr 07/11/23 06:00 07/11/23 07:25 IV 08/09/23 23:59 80 mls/hr INFUSION OLLIE Administration IV Miscellaneous Supplies 1 each 07/11/23 06:00 Iv Access IV 08/09/23 23:59 DIRECTED OLLIE Ondansetron HCl 4 mg 07/11/23 05:40 Ondansetron 4 Mg/2 Ml Vial IVP 08/10/23 05:39 Q4H PRN PRN Nausea / Vomiting Sodium Chloride 0 ml 07/11/23 06:00 Normal Saline Flush 10 Ml Syr IV 08/09/23 23:59 PRN PRN Sodium Chloride 0 ml 07/11/23 06:00 Normal Saline 10 Ml Vial IJ 08/09/23 23:59 DIRECTED PRN Sterile Water 0 ml 07/11/23 06:00 Water,Injection,Sterile 10 Ml Vial IJ 08/09/23 23:59 DIRECTED PRN PFSH Active Problems Active Problems: Problem Status Onset Code Hematochezia K92.1 BRBPR (bright red blood per rectum) K62.5 Tobacco abuse Z72.0 Fatigue R53.83 Alcohol use Z78.9 Sigmoid diverticulum K57.30 Constipation K59.00 Gallstone K80.20 Medical History Medical History (Updated 07/11/23 @ 08:10 by Chrystal Lobo DO) Chronic SI joint pain Elevated blood pressure reading Hematuria Hemorrhoids Left hand pain Post-operative nausea and vomiting Right hand pain Surgical History Surgical History (Updated 07/11/23 @ 07:16 by Stacy Vick RN) History of repair of left rotator cuff History of surgery on right wrist Hx of right knee surgery Tobacco Smoking/Tobacco Use Status: Current every day Tobacco Type: cigarettes Alcohol Alcohol Intake: current Alcohol intake frequency: 3 or more drinks per day Alcohol type: beer Substance Use Substance use: Never Substance use type: does not use Vital Signs and Lab Results Vital Signs Most Recent Vital Signs in EMR: Most Recent Vital Signs Temp Pulse Resp BP Pulse Ox 36.5 C 94 H 17 136/87 98 07/11/23 07:09 07/11/23 07:09 07/11/23 07:09 07/11/23 07:09 07/11/23 07:09 Lab Results Blood Type / Crossmatch: No Data to Display Complete Blood Count: White Blood Count 8.88 10^3/uL (4.4-10.8) 06/26/23 09:20 Red Blood Count 5.21 10^6/uL (4.36-5.78) 06/26/23 09:20 Hemoglobin 15.5 g/dL (13.5-17.5) 06/26/23 09:20 Hematocrit 44.7 % (40.0-50.0) 06/26/23 09:20 Platelet Count 226 10^3/uL (130-400) 06/26/23 09:20 Complete Metabolic Panel: Sodium 138 mmol/L (136-145) 06/26/23 09:20 Potassium 4.1 mmol/L (3.5-5.1) 06/26/23 09:20 Chloride 104 mmol/L (98-107) 06/26/23 09:20 Carbon Dioxide 23.9 mmol/L (21.0-32.0) 06/26/23 09:20 BUN 12 mg/dL (7-18) 06/26/23 09:20 Creatinine 1.0 mg/dL (0.70-1.30) 06/26/23 09:20 Est GFR (CKD-EPI 2020) 94.00 (mL/min/1.73m2) 06/26/23 09:20 Magnesium 1.8 mg/dL (1.8-2.4) 06/26/23 09:20 Calcium 9.2 mg/dL (8.5-10.1) 06/26/23 09:20 Albumin 3.6 g/dL (3.4-5.0) 06/26/23 09:20 Glucose 116 mg/dL (74-106) H 06/26/23 09:20 Liver Function Panel: Alanine Aminotransferase (ALT/SGPT) 44 U/L (16-63) 06/26/23 09: 20 Aspartate Amino Transf (AST/SGOT) 19 U/L (15-37) 06/26/23 09:20 Coagulation Panel: No Data to Display Cardiac Panel: No Data to Display Arterial Blood Gas: No Data to Display Venous Blood Gas: No Data to Display Pancreas Panel: Lipase 43 U/L (16-77) 06/26/23 09:20 Thyroid Panel: No Data to Display Infectious Disease: No Data to Display Blood Cultures: No Data to Display Toxicology Panel: No Data to Display Anesthesia Assessment and Plan Anesthesia History Personal History: PONV Family History: No Family History of Anesthesia Complications Exercise Tolerance Exercise Tolerance: Metabolic Equivalents>4 Pertinent Negatives Pertinent Negatives: No Symptoms of GERD, No Major Cardiovascular Symptoms or Complaints and No Major Pulmonary Symptoms or Complaints Cardiac & Pulmonary Exam Cardiac Exam: Normal S1/S2 Heart Sounds Pulmonary Exam: Clear Bilateral Breath Sounds Implantable Cardiac Device Does patient have a Pacemaker or an ICD?: No Airway Exam Known Difficult Airway: No Mallampati Class: 2 Mouth Opening: Normal (> 3cm) Thyromental Distance: Greater than 3 cm Neck Range of Motion: Full ROM Neck Circumference: Normal Teeth Condition: Normal Dentition ASA Classification ASA Score: ASA 2 Emergency Case?: No NPO Status NPO Status: NPO Clears >2 hours, Solids >8 hours Anesthesia Plan Resuscitation Status: Full Code Anesthesia Technique: General Anesthesia Airway Planned: Natural Airway Monitors Used: Standard Monitors
[2023-07-11 07:28] VITALS: BMI 36.3
[2023-07-11 08:52] VITALS: BP 133/94; PULSE 88; RESP 18; TEMP 36.2; O2SAT 94
[2023-07-11] MEDS: Normal Saline Flush 10 ML SYR IV ×2 (09:13→10:05)
[2023-07-11] MEDS: Ketorolac 15 MG/ML VIAL IVP (09:13)
[2023-07-11 09:15] VITALS: BP 136/72; PULSE 78; RESP 22; TEMP 36.2; O2SAT 99
[2023-07-11] MEDS: Lidocaine/Prilocaine Cream 5 GM TUBE TP (09:36)
--- NOTE | 2023-07-11 09:48 | W.ANESPOSTOP ---
Postoperative Evaluation Date, Time and Location Date Performed: 07/11/23 Time Performed: 09:48 Patient Location: Day Surgery Unit Vital Signs Most Recent Imported Vital Signs: Most Recent Vital Signs Temp Pulse Resp BP Pulse Ox 36.2 C L 78 22 136/72 99 07/11/23 09:15 07/11/23 09:15 07/11/23 09:15 07/11/23 09:15 07/11/23 09:15 Pain Score Most Recent Pain Score: Most Recent Pain Score Pain Level 10 07/11/23 09:15 Assessment Mental Status: Awake (Alert & Oriented to Patient Baseline) Airway and Respiratory Function: Patent airway with normal (patient baseline) respiratory exam Cardiovascular Function: Hemodynamically Stable Hydration Status: Adequately Hydrated Nausea & Vomiting: No Nausea or Vomiting Pain: Pain is Moderate or Severe Postoperative Pain Management: Pain being addressed with medication (surgeon managing discomfort.) Peripheral Nerve Block: Patient did not receive a nerve block
[2023-07-11] MEDS: MORPHine 10 MG/ML VIAL 2 MG IVP (10:04)
[2023-07-11] MEDS: Acetaminophen 500 MG TAB 1000 MG PO (10:06)
[2023-07-11 10:35] VITALS: BP 121/76; PULSE 71; RESP 16; TEMP 36.4; O2SAT 98
== END 2023-07-11 11:16 | disposition home or self-care (01) ==
PROVIDERS: PCP Family Medicine; Visit Provider Surgery
PROC: 0DJD8ZZ Inspection of Lower Intestinal Tract, Via Natural or Artificial Opening Endoscopic (ICD-10-PCS; CPT 45378; principal; 2023-07-11 08:15)
DX: K62.5 Hemorrhage of anus and rectum (principal); K57.30 Diverticulosis of large intestine without perforation or abscess without bleeding; K64.1 Second degree hemorrhoids
CPT/HCPCS: 45378; 46221; J1885; J2270; J2704

== ENCOUNTER 2023-07-24 09:18 | Outpatient (CLI) | payer BC, SELFPAY ==
[2023-07-24 09:40] LABS: HCT 43.3 % (40.0-50.0); HGB 14.8 g/dL (13.5-17.5); MCH 29.6 pg (27.0-33.0); MCHC 34.2 % (32.0-36.0); MCV 87 fL (80-95); MPV 10.1 fL (8.0-11.0); Platelet Count 237 10^3/uL (130-400); RDW 12.6 % (11.8-14.1); RDW-SD 39.8 fL; WBC 7.77 10^3/uL (4.4-10.8)
[2023-07-24 10:10] LABS: Anion Gap 6.8 mmol/L (3-11); BUN 14 mg/dL (7-18); C-Reactive Protein 1.05 mg/dL (0.0-0.3); CO2 24.2 mmol/L (21.0-32.0); CREATININE 0.9 mg/dL (0.70-1.30); Calcium 9.1 mg/dL (8.5-10.1); Chloride 104 mmol/L (98-107); Estimated GFR 106.67 (mL/min/1.73m2); Glucose 117 mg/dL (74-106); Sodium 135 mmol/L (136-145)
[2023-07-24 10:29] LABS: Iron 82 ug/dL (65-175); Total Iron Binding Capacity 263 ug/dL (250-450); Transferrin Sat 31 % (20-55)
[2023-07-24 10:52] LABS: Vitamin D 25 Total 20.1 ng/mL (30-100)
[2023-07-30 18:43] LABS: Testosterone, Free 13.7 ng/dL (4.26-16.4); Testosterone, Total 500 ng/dL (240-950)
== END 2023-07-24 09:19 | disposition home or self-care (01) ==
LOC: LBO 09:18
PROVIDERS: PCP Family Medicine; Visit Provider Family Medicine
DX: R53.83 Other fatigue (principal); K92.1 Melena
CPT/HCPCS: 36415; 80048; 82306; 84402; 84403; 85027; 83540; 83550; 86140

== ENCOUNTER 2023-08-08 10:05 | Day surgery (SDC) | payer BC, SELFPAY ==
--- NOTE | 2023-08-07 22:34 | PDOC.DSDIS_ITS ---
Date of service: 08/08/23 Time of Service: 14:19 Discharge Plan Disposition Patient Disposition: Home Condition: Improving Discharge Details Reason For Visit: Gallbladder removal Attending Provider: Chrystal Lobo Primary Care Provider: Octavia Coto Home Meds and New Rx's Prescriptions: New tramadol 50 mg tablet 50 mg PO Q4H PRNQty: 14 0RF ondansetron 4 mg tablet,disintegrating 4 mg PO Q6H PRNQty: 7 0RF Continued acetaminophen 500 mg tablet 500 mg PO Q6H PRN Discharge Instructions Additional Instructions: Care after Gallbladder Surgery -Pain control: ?For the first 72 hours after surgery, take your pain meds continuously, and not just when you have pain.?? Alternate Tylenol 1000mg by mouth every 8 hours, and Ibuprofen 600mg every 6 hours.? Make sure you take ibuprofen with food and not on an empty stomach.? ??Use the tramadol for breakthrough pain- pain that is greater than a 7. ?- Use ICE! Ice really helps to keep the swelling down, and swelling causes pain. ??Twenty minutes on, and then off, continuously for the first 72hours.? After the first 72hrs, you can just use the Tylenol, ibuprofen or Celebrex, and ice, when you have pain.?? If you are taking narcotic pain medication, follow the instructions on the label and do not drive. Pain medications can make you very constipated. Make sure you are moving your bowels daily. If not, take Miralax. - Anesthesia makes you very constipated.? Take a dose of Miralax the morning after surgery. ? Use an ice bag for the first 72 hours. This helps to decrease swelling, which causes pain. It is normal to be more sore/painful and swollen towards the end of the day and first thing in the morning. ? Gallbladder surgery can make you very nauseated; use Zofran for nausea, for the first 24 hours. The nausea generally stops after 24 hours. ? Use Miralax or prune juice to prevent constipation (this is a particular side effect of pain medication and anesthesia). Do not allow yourself to become constipated. ? Avoid fatty or greasy foods; introduce these slowly, with care, after about 1 month. High-fat foods include: ? Foods that are fried, like Ivorian fries and potato chips ? High-fat meats, such as elliott, bologna, sausage, ground beef, and ribs, pork products ? High-fat dairy products, such as cheese, ice cream, cream, whole milk, and sour cream ? Pizza ? Foods made with lard or butter ? Creamy soups or sauces ? Meat gravies ? Chocolate ? Oils, such as palm and coconut oil ? Skin of chicken or turkey ? Nuts and nut butters ? Avocadoes ? Start out eating very small, bland amounts of food. Do not take pain pills on an empty stomach. - You will notice purple discoloration around the incisions.? This is the ?skin glue?.? This will wear off on its own.? It is OK to shower after 24hrs.? You do not need to cover the incisions. -You should walk frequently, gradually, increasing the distance. You may climb stairs, just go slowly. ? Do not go swimming or sit in a hot tub for two weeks. ? There are no stitches to remove. ? Do not drive your car x72hrs and then only if you have no pain and can move freely. Do not drive if you are taking pain narcotic pain medications. ? You may resume sexual activity whenever pain and soreness subside, usually in 2 weeks. ? Do no lift anything over 5 lbs. for two weeks. ? You may return to work in one week, or when you feel able, provided you do not have to do any heavy lifting or prolonged standing. ? You should return to Dr. Lobo?s office for a post-op appointment about two weeks after surgery. A follow-up should have been scheduled for you already.? If there is not, please call the [facility] at: [phone] to schedule an appointment. My Medications for pain and nausea are: Tylenol/ibuprofen ?and ultram- for severe pain ?and Zofran-nausea When to Call the Office: ? If the incision becomes red or swollen, or there is more than a little drainage from it. ? If you develop a temperature higher than 100.5 F. ? If your eyes turn yellow ? Vomiting and can?t keep fluids down Activity:: See above Remove Dressings/Wound Care:: 24 hours Shower/Bathe:: 24 hours Diet:: Low-fat/see above Discharge Orders Discharge Orders: Discharge Order (Routine); Ordered 08/08/23 Ordered By: Chrystal Lobo DS: Diagnosis Discharge Diagnosis (1) Diverticula of colon: Status: Acute (2) Cholesterol polyp of gallbladder: Status: Acute (3) Gallstones without obstruction of gallbladder: Status: Acute Asessment and Plan: The patient is doing well post-op from their lap chad surgery.? They are having no nausea or vomiting. They are tolerating liquids and a snack. The pt is not having any chest pain or SOB.? Their pain is adequately controlled. They have been able to urinate.? ?HEENT:? no eye pain/drainage/redness/swelling. Mild sore throat ?Cardio- NSR, no chest pain, BP stable- see VS record ?Pulm: no sob or productive cough. No hemoptysis ?Incision- dressing is c/d/i w/ no excessive bleeding or drainage ?I discussed with the patient the findings at the time of surgery and the patient?s progress. ?We reviewed expectations at home; what the patient could expect for recovery time, and in the post-operative period.? We discussed the importance of walking to avoid blood clots and pneumonia.? We discussed and reviewed the patient's post-operative wound care and dressing needs.?? We reviewed their step-coleman pain management plan, Rx called to the pharmacy of their choice.? We reviewed activity and limitations-see discharge instructions. We reviewed warning signs, and when to seek medical attention- see d/c instructions.?? Patient was given a postoperative follow-up appointment. Patient verbalized understanding of their postoperative instructions, how do to take care of themselves and their incision, and the pain management plan. Please see discharge instructions.? (4) Tobacco abuse: Status: Acute (5) Fatigue: Status: Acute (6) Alcohol use: Status: Acute (7) Hemorrhoids: (8) Post-operative nausea and vomiting: Anemia profile Hgb 14.8 g/dL (13.5-17.5) 07/24/23 Hct 43.3 % (40.0-50.0) 07/24/23 MCV 87 fL (80-95) 07/24/23 RDW 12.6 % (11.8-14.1) 07/24/23 Iron 82 ug/dL (65-175) 07/24/23 TIBC 263 ug/dL (250-450) 07/24/23 Transferrin % Sat 31 % (20-55) 07/24/23 Basic Metabolic Sodium 135 mmol/L (136-145) L 07/24/23 Potassium 4.0 mmol/L (3.5-5.1) 07/24/23 Chloride 104 mmol/L (98-107) 07/24/23 Carbon Dioxide 24.2 mmol/L (21.0-32.0) 07/24/23 BUN 14 mg/dL (7-18) 07/24/23 Creatinine 0.9 mg/dL (0.70-1.30) 07/24/23 Glucose 117 mg/dL (74-106) H 07/24/23 CBC White Blood Count 7.77 10^3/uL (4.4-10.8) 07/24/23 Red Blood Count 5.00 10^6/uL (4.36-5.78) 07/24/23 Hemoglobin 14.8 g/dL (13.5-17.5) 07/24/23 Hematocrit 43.3 % (40.0-50.0) 07/24/23 Mean Corpuscular Volume 87 fL (80-95) 07/24/23 Mean Corpuscular Hemoglobin 29.6 pg (27.0-33.0) 07/24/23 Mean Corpuscular Hemoglobin Concent 34.2 % (32.0-36.0) 07/14 12/05 Red Cell Distribution Width 12.6 % (11.8-14.1) 07/24/23 Platelet Count 237 10^3/uL (130-400) 07/24/23 Mean Platelet Volume 10.1 fL (8.0-11.0) 07/24/23 Neutrophils % 66.1 06/26/23 Lymphocytes % 24.1 06/26/23 Monocytes % 7.4 06/26/23 Eosinophils % 1.2 06/26/23 Basophils % 0.6 06/26/23 Immature Granulocytes % 0.6 06/26/23 Comprehensive Metabolic Panel Sodium 135 mmol/L (136-145) L 07/24/23 09:25 Potassium 4.0 mmol/L (3.5-5.1) 07/24/23 09:25 Chloride 104 mmol/L (98-107) 07/24/23 09:25 Carbon Dioxide 24.2 mmol/L (21.0-32.0) 07/24/23 09:25 BUN 14 mg/dL (7-18) 07/24/23 09:25 Creatinine 0.9 mg/dL (0.70-1.30) 07/24/23 09:25 Glucose 117 mg/dL (74-106) H 07/24/23 09:25 Calcium 9.1 mg/dL (8.5-10.1) 07/24/23 09:25 Total Bilirubin 0.4 mg/dL (0.2-1.0) 06/26/23 09:20 ALT 44 U/L (16-63) 06/26/23 09:20 AST 19 U/L (15-37) 06/26/23 09:20 Alkaline Phosphatase 110 U/L (46-116) 06/26/23 09:20 Total Protein 7.8 g/dL (6.4-8.2) 06/26/23 09:20 Albumin 3.6 g/dL (3.4-5.0) 06/26/23 09:20 Diabetes results Glucose 117 mg/dL (74-106) H 07/24/23 Total Cholesterol 206 mg/dL (<200) H 05/19/23 LDL Cholesterol, Calc 117 mg/dL (<100) H 05/19/23 HDL Cholesterol 44 mg/dL (40-60) 05/19/23 Triglycerides 225 mg/dL (<150) H 05/19/23 BUN 14 mg/dL (7-18) 07/24/23 Creatinine 0.9 mg/dL (0.70-1.30) 07/24/23 Est GFR (CKD-EPI 2020) 106.67 (mL/min/1.73m2) 07/24/23 Sodium 135 mmol/L (136-145) L 07/24/23 Potassium 4.0 mmol/L (3.5-5.1) 07/24/23 Chloride 104 mmol/L (98-107) 07/24/23 Carbon Dioxide 24.2 mmol/L (21.0-32.0) 07/24/23 Calcium 9.1 mg/dL (8.5-10.1) 07/24/23 AST 19 U/L (15-37) 06/26/23 ALT 44 U/L (16-63) 06/26/23 Total Protein 7.8 g/dL (6.4-8.2) 06/26/23 Albumin 3.6 g/dL (3.4-5.0) 06/26/23 TSH 1.68 uIU/mL (0.36-3.74) 05/19/23 Lipid profile Total Cholesterol 206 mg/dL (<200) H 05/19/23 HDL Cholesterol 44 mg/dL (40-60) 05/19/23 LDL Cholesterol, Calc 117 mg/dL (<100) H 05/19/23 Triglycerides 225 mg/dL (<150) H 05/19/23
--- NOTE | 2023-08-07 22:37 | W.PM.OP ---
Date of service: 08/08/23 Time of Service: 14:18 Operative Note Operative Note DATE OF PROCEDURE: 08/08/23 PRE-OP DIAGNOSIS: Gallstones and cholesterol polyp POST-OP DIAGNOSIS: same PROCEDURE: Laparoscopic cholecystectomy SURGEON: Chrystal Cortez GOVERNMENT SERVICES PROFESSIONAL: Katrin Sher GOVERNMENT SERVICES PROFESSIONAL: Katrin Sher ANESTHESIA TYPE: Local By Surgeon and General LMA/ETT Refer to Anesthesia Record PATHOLOGY: other COMPLICATIONS: None Patient was transported to: PACU Patient's condition: stable Procedure Description: The pt is seen at the request of there PCP regarding acute on chronic cholecystitis, cholelithiasis. The pt has failed outpt conservative medical measures and is here today for laparoscopic cholecystectomy. Informed consent was obtained, explaining risks and benefits of the procedure including but not limited to bleeding, infection, pneumonia, blood clots, possible damage to bowel, bladder, blood vessels, bile ducts, possible open procedure, complications of general anesthesia and other unforetold complications. PROCEDURE: The patient agrees and is brought to the operative room suite and placed in supine position. Pt receives IV ICG preOp to aid w/ bile duct visualization.? Anesthesia was administered per the Department of Anesthesia. The patient did receive IV antibiotics. NG tube and Werner catheter are placed. The patient was prepped and draped in the usual sterile fashion using DuraPrep scrub solution. Pause for the cause was done. 20 mL of 1% buffered lidocaine was used for local anesthetization. A stab incision was made in the umbilicus and the Verres inserted. Drop test was positive and insufflation was begun. When 15 mm of pressure was noted on the monitor, the Veress was removed and #5 port inserted. The camera was inserted through the port and shows no damage to underlying structures. A 10 mm port was then placed in the epigastric position under direct visualization following creation of local field blocks as well as two 5 mm ports in the right upper quadrant. The camera was moved to one of the secondary ports so we could view the umbilical trocar site, and there is are no hernias or adhesions. The gallbladder fundus was grasped and retracted towards the right shoulder. Infundibulum was grasped and retracted laterally. The hepat-duodenal ligament is entered. The cystic duct and artery are dissected out and the most inferior portion of the gallbladder plate is removed from the liver and the critical view of safety was obtained after clearing away all fatty material. Endo Clips were placed across the duct and artery and these structures are divided. The remainder of the gallbladder was excised from the liver bed. The gallbladder was placed in a bag and brought out. Examination of the gallbladder shows indeed the cystic duct and artery to have been divided. The remainder of the abdomen was copiously irrigated with a liter of saline. All saline is removed. There is no bleeding or bile leakage from the liver bed or the clips sites. An EndoClose needle was used to close the 10 mm port site with an 0 Vicryl. All ports and instruments are removed. SPonge and needle counts are correct. Pneumoperitoneum is evacuated and the port sites are monitored to make sure there is no bleeding at the time of desufflation. ??Port sites are irrigated and the skin is closed with 4-0 Monocryl in a running subcuticular fashion. Skin glue sterile dressings are applied. The patient tolerated the procedure well without complications, transferred to the recovery room in stable condition. CHRYSTAL CORTEZ, DO
[2023-08-08] VITALS (13 sets, daily range): BP systolic 116–137; BP diastolic 67–102; PULSE 60–79; RESP 11–26; TEMP 36.3–36.8; O2SAT 93–98; BMI 37.4
[2023-08-08] MEDS: Acetaminophen 500 MG TAB 1000 MG PO (10:53)
[2023-08-08] MEDS: Gabapentin 300 MG CAP 600 MG PO (10:53)
[2023-08-08] MEDS: Lactated Ringers 1,000 ML 80 ML IV ×2 (11:00→14:04)
[2023-08-08] MEDS: Indocyanine green 25 MG VIAL 5 MG IVP (11:12)
[2023-08-08] MEDS: Normal Saline Flush 10 ML SYR IV (11:15)
--- NOTE | 2023-08-08 12:26 | W.ANESPRE ---
General Info Date of Service Date Performed: 08/08/23 Height: 6 ft 1 in Weight: 128.8 kg Body Mass Index (BMI): 37.4 Surgical Procedure: Operation Date: 08/08/23 12:25 Proposed Procedure Side Surgeon p Cholecystectomy Laparoscopic Possible Open Chrystal Lobo, Meds Allergies and Home Medications Allergies Allergy/AdvReac Type Severity Reaction Status Date / Time acetaminophen [From Percocet] AdvReac Intermediate stomach Verified 08/08/23 10:39 pain, nausea codeine AdvReac Intermediate Per pt. Verified 08/08/23 10:39 states It's like im drunk, I dont want anything wit oxycodone HCl [From Percocet] AdvReac Intermediate stomach Verified 08/08/23 10:39 pain, nausea Home Medication Medication Instructions Recorded acetaminophen 500 mg tablet 500 mg PO Q6H PRN 06/15/23 Current Visit Medications: Current Medications Generic Name Dose Route Start Last Admin Trade Name Freq PRN Reason Stop Dose Admin Acetaminophen 1,000 mg 08/08/23 06:00 08/08/23 10:53 Acetaminophen 500 Mg Tab PO 08/08/23 16:00 1,000 mg PREOP OLLIE Administration Gabapentin 600 mg 08/08/23 06:00 08/08/23 10:53 Gabapentin 300 Mg Cap PO 08/08/23 16:00 600 mg PREOP OLLIE Administration Ringer's Solution 1,000 mls @ 80 mls/hr 08/08/23 06:00 08/08/23 11:00 IV 09/06/23 23:59 80 mls/hr INFUSION OLLIE Administration Cefazolin Sodium 3,000 mg/ 100 mls @ 200 mls/hr 08/08/23 06:00 Sodium Chloride IVPB 08/08/23 16:00 PREOP OLLIE Ondansetron HCl 4 mg/ Sodium 52 mls @ 200 mls/hr 08/08/23 04:15 Chloride IVPB 09/07/23 04:14 Q6H PRN PRN IV Miscellaneous Supplies 1 each 08/08/23 06:00 Iv Access IV 09/06/23 23:59 DIRECTED OLLIE Indocyanine Green 5 mg 08/08/23 06:00 08/08/23 11:12 Indocyanine Green 25 Mg Vial IVP 08/08/23 16:00 5 mg PREOP OLLIE Administration Morphine Sulfate 2 mg 08/08/23 04:15 Morphine 4 Mg/Ml Syr IVP 09/07/23 04:14 Q1H PRN PRN Sodium Chloride 0 ml 08/08/23 06:00 08/08/23 11:15 Normal Saline Flush 10 Ml Syr IV 09/06/23 23:59 30 ml PRN PRN Administration Sodium Chloride 0 ml 08/08/23 06:00 Normal Saline 10 Ml Vial IJ 09/06/23 23:59 DIRECTED PRN Sterile Water 0 ml 08/08/23 06:00 Water,Injection,Sterile 10 Ml Vial IJ 09/06/23 23:59 DIRECTED PRN Tramadol HCl 50 mg 08/08/23 04:15 Tramadol 50 Mg Tab PO 09/07/23 04:14 Q6H PRN PRN Pain PFSH Active Problems Active Problems: Problem Status Onset Code Gallstones without obstruction of gallbladder K80.20 Diverticula of colon K57.30 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 Tobacco abuse Z72.0 Fatigue R53.83 Alcohol use Z78.9 Medical History Medical History BRBPR (bright red blood per rectum) Chronic SI joint pain Elevated blood pressure reading Hematochezia Hematuria Hemorrhoids Left hand pain Post-operative nausea and vomiting Right hand pain Surgical History Surgical History History of colonoscopy (~06/2023) History of repair of left rotator cuff History of surgery on right wrist Hx of right knee surgery Tobacco Smoking/Tobacco Use Status: Current every day Tobacco Type: cigarettes Alcohol Alcohol Intake: current Alcohol intake frequency: 3 or more drinks per day Alcohol type: beer Substance Use Substance use: Never Substance use type: does not use Vital Signs and Lab Results Vital Signs Most Recent Vital Signs in EMR: Most Recent Vital Signs Temp Pulse Resp BP Pulse Ox 36.8 C 79 18 131/102 H 98 08/08/23 10:27 08/08/23 10:27 08/08/23 10:27 08/08/23 10:27 08/08/23 10:27 Lab Results Blood Type / Crossmatch: No Data to Display Complete Blood Count: White Blood Count 7.77 10^3/uL (4.4-10.8) 07/24/23 09:25 Red Blood Count 5.00 10^6/uL (4.36-5.78) 07/24/23 09:25 Hemoglobin 14.8 g/dL (13.5-17.5) 07/24/23 09:25 Hematocrit 43.3 % (40.0-50.0) 07/24/23 09:25 Platelet Count 237 10^3/uL (130-400) 07/24/23 09:25 Complete Metabolic Panel: Sodium 135 mmol/L (136-145) L 07/24/23 09:25 Potassium 4.0 mmol/L (3.5-5.1) 07/24/23 09:25 Chloride 104 mmol/L (98-107) 07/24/23 09:25 Carbon Dioxide 24.2 mmol/L (21.0-32.0) 07/24/23 09:25 BUN 14 mg/dL (7-18) 07/24/23 09:25 Creatinine 0.9 mg/dL (0.70-1.30) 07/24/23 09:25 Est GFR (CKD-EPI 2020) 106.67 (mL/min/1.73m2) 07/24/23 09:25 Calcium 9.1 mg/dL (8.5-10.1) 07/24/23 09:25 Glucose 117 mg/dL (74-106) H 07/24/23 09:25 C-Reactive Protein 1.05 mg/dL (0.0-0.3) H 07/24/23 09:25 Liver Function Panel: No Data to Display Coagulation Panel: No Data to Display Cardiac Panel: No Data to Display Arterial Blood Gas: No Data to Display Venous Blood Gas: No Data to Display Pancreas Panel: No Data to Display Thyroid Panel: No Data to Display Infectious Disease: No Data to Display Blood Cultures: No Data to Display Toxicology Panel: No Data to Display Anesthesia Assessment and Plan Anesthesia History Personal History: PONV Family History: No Family History of Anesthesia Complications Exercise Tolerance Exercise Tolerance: Metabolic Equivalents>4 Pertinent Negatives Pertinent Negatives: No Symptoms of GERD Cardiac & Pulmonary Exam Cardiac Exam: Normal S1/S2 Heart Sounds Pulmonary Exam: Clear Bilateral Breath Sounds Implantable Cardiac Device Does patient have a Pacemaker or an ICD?: No Airway Exam Known Difficult Airway: No Mallampati Class: 2 Mouth Opening: Normal (> 3cm) Thyromental Distance: Greater than 3 cm Neck Range of Motion: Full ROM Neck Circumference: Normal Teeth Condition: Normal Dentition ASA Classification ASA Score: ASA 2 Emergency Case?: No NPO Status NPO Status: NPO Clears >2 hours, Solids >8 hours Anesthesia Plan Resuscitation Status: Full Code Anesthesia Technique: General Anesthesia Airway Planned: Endotracheal Tube Monitors Used: Standard Monitors
[2023-08-08] MEDS: ceFAZolin 3,000 MG in Normal Saline 100 ML 200 MG IVPB (13:05)
--- NOTE | 2023-08-08 13:41 | GB_PTH ---
PATIENT: Chi Mcgill LOC: [facility] U#:[id number] AGE/SX: 48/M ROOM: RE08/08/[address]: Chrystal Lobo : 1975 BED: DIS: 08/08/2023 SPEC #: [id number] RECD: 08/08/23 16:22 STATUS: [facility] #: [id number] MAICO: 08/08/23 13:[address]: Chrystal Lobo DEPT: Surgical Specimen RECD BY: Meagan Ahuja ENTERED: 08/08/23 16:23 SP TYPE: GB OTHR DR: Octavia Coto Tissues: 1 - GALLBLADDER Procedures: GROSS AND MICRO LEVEL 3 Comments: [id number]
[2023-08-08] MEDS: Cellulose,Oxidized 4X8 1 PACKET MC (14:31)
[2023-08-08] MEDS: fentaNYL 100 MCG/2 ML VIAL IVP ×2 (14:58→15:15)
[2023-08-08] MEDS: HYDROmorphone 2 MG/ML SYR IVP ×2 (15:30→15:45)
--- NOTE | 2023-08-08 15:41 | W.ANESPOSTOP ---
Postoperative Evaluation Date, Time and Location Date Performed: 08/08/23 Time Performed: 15:41 Patient Location: PACU Vital Signs Most Recent Imported Vital Signs: Most Recent Vital Signs Temp Pulse Resp BP Pulse Ox 36.4 C L 60 16 128/72 93 08/08/23 15:30 08/08/23 15:30 08/08/23 15:30 08/08/23 15:30 08/08/23 15:30 Pain Score Most Recent Pain Score: Most Recent Pain Score Pain Level 0 08/08/23 14:44 Assessment Mental Status: Arousable with meaningful communication Airway and Respiratory Function: Patent airway with normal (patient baseline) respiratory exam Cardiovascular Function: Hemodynamically Stable Hydration Status: Adequately Hydrated Nausea & Vomiting: No Nausea or Vomiting Pain: Pain is tolerable per patient (Rx with IV narcotics) Peripheral Nerve Block: Patient did not receive a nerve block
[2023-08-08] MEDS: Methocarbamol 500 MG TAB 1000 MG PO (16:01)
[2023-08-08] MEDS: traMADol 50 MG TAB PO (16:38)
== END 2023-08-08 17:45 | disposition home or self-care (01) ==
PROVIDERS: PCP Family Medicine; Visit Provider Surgery
PROC: 0FT44ZZ Resection of Gallbladder, Percutaneous Endoscopic Approach (ICD-10-PCS; CPT 47562; principal; 2023-08-08 12:15)
DX: K80.20 Calculus of gallbladder without cholecystitis without obstruction
CPT/HCPCS: 47562; 88304; J0690; J1100; J1170; J1885; J2001; J2250; J2405; J2704; J3010

== ENCOUNTER 2023-08-21 15:24 | Outpatient (CLI) | payer BC, SELFPAY ==
[2023-08-21 15:08] LABS: Abs Immature Grans 0.02 10^3/uL (0.0-0.06); Absolute Basophil Count 0.05 10^3/uL (0.0-0.2); Absolute Eosinophil Count 0.11 10^3/uL (0.0-0.7); Absolute Lymphocyte Count 3.05 10^3/uL (1.2-3.4); Absolute Monocyte Count 0.65 10^3/uL (0.1-0.8); Absolute Neutrophil Count 5.39 10^3/uL (1.2-6.7); Basophils % 0.5; Eosinophils % 1.2; HGB 15.1 g/dL (13.5-17.5); Immature Grans % 0.2; Lymphocytes % 32.9; MCH 28.9 pg (27.0-33.0); MCHC 34.3 % (32.0-36.0); MCV 84 fL (80-95); MPV 9.5 fL (8.0-11.0); Neutrophils % 58.2; Platelet Count 312 10^3/uL (130-400); RBC 5.22 10^6/uL (4.36-5.78); RDW 11.8 % (11.8-14.1); RDW-SD 35.7 fL; WBC 9.27 10^3/uL (4.4-10.8)
[2023-08-21 16:13] LABS: ALT 45 U/L (16-63); AST 15 U/L (15-37); Albumin 3.5 g/dL (3.4-5.0); Alkaline Phosphatase 138 U/L (46-116); Anion Gap 9.5 mmol/L (3-11); BUN 9 mg/dL (7-18); Bilirubin, Total 0.3 mg/dL (0.2-1.0); CO2 26.5 mmol/L (21.0-32.0); CREATININE 0.9 mg/dL (0.70-1.30); Calcium 9.4 mg/dL (8.5-10.1); Chloride 103 mmol/L (98-107); Estimated GFR 106.67 (mL/min/1.73m2); Glucose 105 mg/dL (74-106); Potassium 3.6 mmol/L (3.5-5.1); Sodium 139 mmol/L (136-145); Total Protein 8.2 g/dL (6.4-8.2)
== END 2023-08-21 15:25 | disposition home or self-care (01) ==
LOC: LBO 15:24
PROVIDERS: PCP Family Medicine; Visit Provider Surgery
DX: K80.20 Calculus of gallbladder without cholecystitis without obstruction (principal); Z90.49 Acquired absence of other specified parts of digestive tract
CPT/HCPCS: 36415; 80053; 85025